=== PATIENT | female | born 1955 | race African-American/Black ===

== ENCOUNTER 2017-03-02 22:19 | Emergency (ER) | payer OTHER ==
[~2017-03-02] VITALS: Ht 152.4 cm; Wt 73.9 kg
[~2017-03-02 22:19] MED LIST: FLEXERIL10 MG PO; NAPROSYN 500 M500 MG PO
--- NOTE | 2017-03-02 23:19 | ED CARDIAC/CP/PALPITATIONS ---
History of Present Illness General Chief Complaint: Chest Pain Stated Complaint: "CP" Source: patient, family, old records Exam Limitations: no limitations Vital Signs & Intake/Output Vital Signs & Intake/Output Vital Signs Date Time Temp Pulse Resp B/P B/P Pulse O2 O2 Flow FiO2 Mean Ox Delivery Rate 03/02 2249 Room Air 03/02 2229 97.8 78 20 147/89 97 Room Air ED Intake and Output 03/03 0000 03/02 1200 Intake Total 0 Output Total Balance 0 Intake, Oral 0 Patient 163 lb Weight Allergies Coded Allergies: MDX - Cephalexin (From KEFLEX) (Severe, CLOSES THROAT 09/29/14) MDX - SULFA (sulfonamide) (SULFA (SULFONAMIDE)) (Severe, THROAT CLOSES 09/29/14) MDX - Clindamycin (CLINDAMYCIN) (Mild, RASH 09/29/14) MDX - Penicillin (PENICILLIN) (Mild, RASH 09/29/14) Reconcile Medications No Known Home Medications Core Measure Meds Pre-Hospital aspirin Triage Note: PT TO TRIAGE C/O R SIDE ABD PAIN RADIATING INTO BACK THAT BEGAN 20MIN LABORER MINE WHILE PT WAS SITTING EATING A POPSICLE. PT NOT DIAPHORETIC, MILD SOB TALKING IN FULL SENTENCES 02 SAT 97%. PT TOOK 2 BABY ASA PRIOR TO ARRIVAL. 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 yes Onset: Just prior to arrival Duration: minute(s):, constant, continues in ED Timing: single episode today Quality/Severity: moderate Location: central Radiation: no radiation Activities at Onset: rest Prior Chest Pain/Card Workup: no prior chest pain, no prior cardiac workup Modifying Factors: Worsens With: coughing, movement. Nitro Today/Relief: no nitro taken today Aspirin Today: 81 mg x 2, provided at home LMP (ages 10-50): post menopausal : No Patient currently breastfeeds: No HPI: 30 minutes prior to admission after walking down the stairs patient developed right-sided chest pain sharp constant worse with coughing and movement nonradiating. She denies fever chills nausea vomiting diarrhea abdominal pain and shortness of breath headache dysuria rash bleeding Past History Travel History Traveled to [place] past 21 day No Medical History Any Pertinent Medical History? see below for history Cardiovascular: hyperlipidemia Hepatic: cholelithiasis Musculoskeletal: fracture, R FINGER FX/SX/PINS Surgical History Surgical History: cholecystectomy, , hysterectomy, tubal ligation Psychosocial History What is your primary language Albanian Tobacco Use: Never used ETOH Use: occasional use Family History Hx Contributory? No Review of Systems Review of Systems Constitutional: Reports: no symptoms. EENTM: Reports: no symptoms. Respiratory: Reports: no symptoms. Cardiovascular: Reports: see HPI, chest pain. GI: Reports: no symptoms. Genitourinary: Reports: no symptoms. Musculoskeletal: Reports: no symptoms. Skin: Reports: no symptoms. Neurological/Psychological: Reports: no symptoms. Hematologic/Endocrine: Reports: no symptoms. Immunologic/Allergic: Reports: no symptoms. All Other Systems: Reviewed and Negative Physical Exam Physical Exam General Appearance: well developed/nourished, alert, awake, anxious, mild distress Head: atraumatic, normal appearance Eyes: Bilateral: normal appearance, PERRL, EOMI. Ears, Nose, Throat: normal pharynx, normal ENT inspection, hearing grossly normal Neck: normal inspection, supple, full range of motion, no midline tenderness Respiratory: normal breath sounds, no respiratory distress, quiet respiration, lungs clear, right chest wall tenderness especially with movement of right arm Cardiovascular: regular rate/rhythm, normal peripheral pulses, norml femoral pulses equa Peripheral Pulses: 4+ carotid (R), 4+ carotid (L) Gastrointestinal: normal bowel sounds, soft, non-tender, no organomegaly Back: normal inspection, normal range of motion Extremities: normal inspection, normal capillary refill, normal range of motion, no edema Neurologic/Psych: no motor/sensory deficits, awake, alert, oriented x 3, normal gait, normal mood/affect Reflexes: 2+: bicep (R), bicep (L). Skin: intact, normal color, warm/dry Lymphatic: no anterior cervical marleen Core Measures ACS in differential dx? Yes CVA/TIA Diagnosis No Sepsis Present: No Sepsis Focused Exam Completed? No Progress Differential Diagnosis: AMI, costochondritis, hyperkalemia, hypovolemia, pneumonia Plan of Care: Orders Procedure Date/time Status TROPONIN LEVEL 03/03 0200 Complete TROPONIN LEVEL 03/02 225 Complete MAGNESIUM 03/02 225 Complete D-DIMER 03/02 225 Complete COMPREHENSIVE METABOLIC PANEL 03/02 225 Complete CBC WITHOUT DIFFERENTIAL 03/02 2255 Complete EKG 03/02 2220 Active Laboratory Tests 03/03/17 0148: Troponin I 0.02 03/02/17 2315: Anion Gap 13, Estimated GFR > 60, BUN/Creatinine Ratio 26.3 H, Glucose 116 H, Calcium 9.3, Magnesium 1.7, Total Bilirubin 0.3, AST 22, ALT 32, Alkaline Phosphatase 62, Troponin I 0.02, Total Protein 7.0, Albumin 3.9, Globulin 3.1, Albumin/Globulin Ratio 1.3, D-Dimer High Sensitivty < 200, CBC w Diff NO MAN DIFF REQ, RBC 4.01 L, MCV 92.3, MCH 30.3, RDW 14.0, MPV 8.1, Gran % 46.6, Lymphocytes % 39.8, Monocytes % 9.4 H, Eosinophils % 3.3, Basophils % 0.9, Absolute Granulocytes 2.2, Absolute Lymphocytes 1.8, Absolute Monocytes 0.4, Absolute Eosinophils 0.2, Absolute Basophils 0, PUBS MCHC 32.8 L Diagnostic Imaging: Viewed by Me: Radiology Read. Discussed w/RAD: Radiology Read. CXR Impression: no acute abnormality, no infiltrates, normal size heart, normal mediastinum Initial ED EKG: normal axis, normal intervals, normal p-waves, normal QRS complex, normal sinus rhythm, no ST T wave changes Rhythm Strip: normal sinus rhythm Departure Departure Disposition: HOME OR SELF CARE Condition: Stable Clinical Impression Primary Impression: Chest pain syndrome Referrals: Aniya Lennon APRN (PCP/Family) Departure Forms: Customer Survey General Discharge Information RELEASE- WORK Prescriptions: Current Visit Scripts Ibuprofen 1 TAB PO Q6PRN PRN pain #50 TAB with food Baclofen 1 TAB PO TIDPRN PRN muscle spasm/strain #30 TAB Critical Care Note Critical Care Note Critical Care Time: 30-74 min (40)
[2017-03-02 23:27] LABS: ABSOLUTE BASOPHIL COUNT 0 /CUMM (0.0-0.2); ABSOLUTE EOSINOPHIL COUNT 0.2 /CUMM (0.0-0.7); ABSOLUTE GRANULOCYTE CT 2.2 /CUMM (1.4-6.5); ABSOLUTE LYMPH COUNT 1.8 /CUMM (1.2-3.4); ABSOLUTE MONOCYTE COUNT 0.4 /CUMM (0.10-0.60); BASOPHIL % 0.9 % (0.0-2.0); EOSINOPHIL % 3.3 % (0-5); GRANULOCYTE % 46.6 % (42.2-75.2); MEAN CORPUSCULAR HGB 30.3 PG (27.0-31.0); MEAN CORPUSCULAR HGB CONC 32.8 G/DL (33.0-37.0); MEAN CORPUSCULAR VOLUME 92.3 FL (81.0-99.0); MEAN PLATELET VOLUME 8.1 FL (7.4-10.4); WHITE BLOOD CELL COUNT 4.7 /CUMM (4.8-10.8)
--- NOTE | 2017-03-02 23:27 | RADIOLOGY REPORT ---
EXAMINATION: XR PORTABLE CHEST CLINICAL INFORMATION: Chest pain COMPARISON: None TECHNIQUE: Portable frontal view of the chest was obtained. 11:05 PM FINDINGS: No significant abnormality is noted involving the heart, lungs, mediastinum, bony thorax or soft tissues. IMPRESSION: Unremarkable examination.
[2017-03-02 23:46] LABS: PLATELET COUNT 190 /CUMM (130-400); RED BLOOD CELL CT 4.01 /CUMM (4.20-5.40)
[2017-03-03] MEDS ORDERED: IBUPROFEN600 M1 PO (02:36)
[2017-03-03] MEDS ORDERED: BACLOFEN10 M1 PO (02:36)
[2017-03-03 02:43] VITALS: BP 130/79
== END 2017-03-03 02:44 ==
LOC: ERH 22:19
PROVIDERS: Emergency Medicine
DX: R07.1 Chest pain on breathing (principal)
CPT/HCPCS: 71045; 93005; 93010; 96374; J1885